=== PATIENT | female | born 1965 | race Caucasian/White ===

== ENCOUNTER → 2016-05-04 | Outpatient (CLI) | payer OTHER ==
[~2016-05-04] MED LIST: SIMV20TA2 PO; lovenox SC
== END | disposition home or self-care (01) ==
LOC: C.PAPS 11:51
PROVIDERS: ATTEND Obstetrics & Gynecology
DX: Z01.419 Encounter for gynecological examination (general) (routine) without abnormal findings (principal)

== ENCOUNTER → 2016-07-07 | Outpatient (CLI) | payer OTHER ==
--- NOTE | 2016-07-08 08:29 | MAMMOGRAPHY REPORT ---
BILATERAL DIGITAL DIAGNOSTIC MAMMOGRAM TOMOSYNTHESIS WITH CAD AND TARGETED LEFT ULTRASOUND: 07/07/2016 CLINICAL HISTORY: 50-year-old woman presents for bilateral screening mammography and also to follow- up an asymmetry in the medial posterior left breast and another asymmetry in the central right breas t. TECHNIQUE: Bilateral CC and MLO 2-D digital and tomosynthesis images, spot magnification left CC an d ML views were obtained. Current study was also evaluated with a Computer Aided Detection (CAD) sy stem. COMPARISON: Comparison is made to exams dated: 01/28/2016 mammogram, 11/04/2015 ultrasound, 6 mammogram, 06/10/2015 ultrasound, 06/10/2015 mammogram, and 05/28/2015 mammogram - [facility]. BREAST COMPOSITION: The tissue of both breasts is heterogeneously dense, which may obscure small ma sses. FINDINGS: An asymmetry is no longer identified in the middle one third of the right breast, lateral to the nipple. Overall, no new suspicious mass, architectural distortion or suspicious microcalcifi cations are seen in the right breast. The clustered microcalcifications in the 3:00 anterior left b reast appeared somewhat more conspicuous compared to prior mammograms and additional spot magnificat ion views were obtained. With spot magnification, the microcalcifications are sludge on the CC proj ection and nearly all demonstrate layering on the MLO view, confirming benign milk of calcium. The appearance is similar to the previous spot magnification views performed 06/04/2014. An asymmetry m easuring approximately 15 mm is again seen in the far medial, middle to posterior left breast on the CC view including tomosynthesis images. However, there is no definite measurable mass, associated architectural distortion or microcalcification. This asymmetry appears similar dating back to at May 2015, and likely 2014, suggesting benignity. Further evaluation with ultrasound was perfo rmed. Targeted ultrasound was performed in the medial left breast. Sonographically normal tissue is ident ified without a suspicious solid or cystic mass. IMPRESSION: ACR-BI-RADS CATEGORY 3: PROBABLY BENIGN, TARGETED ULTRASOUND ACR-BI-RADS CATEGORY 3: NE OBABLY BENIGN 1. There is no mammographic evidence of malignancy in the right breast. Recommend follow-up in 1 y ear. 2. A 9 mm cluster of microcalcifications in the 3:00 anterior left breast demonstrate layering on t he spot magnification ML view and appear very similar to the spot magnification views performed in [place] arch 2015. These are considered benign and no further close follow-up is needed at this time. 3. There is persistent asymmetry in the far medial left breast on the CC view without evidence of c orresponding mass or architectural distortion on the tomosynthesis images. Nevertheless, this is in creasingly conspicuous comparing to more remote mammograms from 2014, 2013 at 2011 and another 12 mo nth follow-up diagnostic evaluation is recommended. These results and recommendations were discussed with the patient at the time of the exam. She tent atively scheduled the follow-up appointment prior to leaving our department. Approximately 10% of breast cancers are not detected with mammography. A negative mammographic repor t should not delay biopsy if a clinically suggestive mass is present. Nicole Hurt M.D. ay/:07/07/2016 15:13:29 [employer] Bonding Machine Operator: Vandana ROBERTS(Danielle)(Bin), [facility] letter sent: Follow Up Recommended 3 BI-RADS Code: ACR-BI-RADS Category 3: Probably Benign Ultrasound BI-RADS: ACR-BI-RADS Category 3: P robably Benign
== END | disposition home or self-care (01) ==
LOC: C.MAMM 09:21
PROVIDERS: ATTEND Internal Medicine
DX: R92.0 Mammographic microcalcification found on diagnostic imaging of breast (principal); R92.8 Other abnormal and inconclusive findings on diagnostic imaging of breast

== ENCOUNTER → 2017-05-18 | Outpatient (CLI) | payer OTHER | END | disposition home or self-care (01) | LOC: C.PAPS 13:21 | PROVIDERS: ATTEND Obstetrics & Gynecology | DX: Z01.411 Encounter for gynecological examination (general) (routine) with abnormal findings (principal); R87.610 Atypical squamous cells of undetermined significance on cytologic smear of cervix (ASC-US) ==

== ENCOUNTER → 2017-07-15 | Outpatient (CLI) | payer OTHER ==
[~2017-07-15] MED LIST changes: -lovenox SC
--- NOTE | 2017-07-16 07:48 | MAMMOGRAPHY REPORT ---
BILATERAL DIGITAL DIAGNOSTIC MAMMOGRAM TOMOSYNTHESIS WITH CAD: 07/15/2017 CLINICAL HISTORY: 12 month follow-up of left medial breast asymmetry. Due for routine mammography of the right breast. The patient reports no new lumps or other complaints. TECHNIQUE: Breast tomosynthesis in addition to standard 2D mammography was performed. Current study was also evaluated with a Computer Aided Detection (CAD) system. Bilateral CC and MLO 2D and tomosyn thesis images were obtained. COMPARISON: Comparison is made to exams dated: 07/07/2016 ultrasound, 07/07/2016 mammogram, 01/28/2016 m ammogram, 11/04/2015 mammogram, 05/28/2015 mammogram, and 05/24/2014 mammogram - [facility]. BREAST COMPOSITION: The tissue of both breasts is heterogeneously dense, which may obscure small mas ses. FINDINGS: The previously described asymmetry seen within the left medial breast on the cc view is sta ble on tomosynthesis images dating back to the May 2015 exam, and on the tomosynthesis images has t he appearance of normal overlapping fibroglandular tissue. Additionally, no sonographic correlate wa s seen on prior ultrasound exams. Given the long-term stability and benign morphology mammographical ly, the asymmetry is considered benign. The remainder of both breasts are stable compared to prior exams, without suspicious masses, calcific ations, or areas of architectural distortion noted. Bilateral benign-appearing calcifications are no t significantly changed, including grouped calcifications in the left 3:00 breast which are compatibl e with benign milk of calcium. IMPRESSION: ACR BI-RADS CATEGORY 2: BENIGN There is no mammographic evidence of malignancy in either breast. A 1 year screening mammogram is rec ommended. The patient has been verbally notified of the results. Approximately 10% of breast cancers are not detected with mammography. A negative mammographic report should not delay biopsy if a clinically suggestive mass is present. Carmelina Zhu M.D. /:07/15/2017 09:39:37 Poultry Feed Supervisor: Miriam ROBERTS(R)(M), [facility] letter sent: Normal 1/2 BI-RADS Code: ACR BI-RADS Category 2: Benign
== END | disposition home or self-care (01) ==
LOC: C.MAMM 09:13
PROVIDERS: ATTEND Internal Medicine
DX: R92.8 Other abnormal and inconclusive findings on diagnostic imaging of breast (principal)